=== PATIENT | female | born 1970 | race African-American/Black ===

== ENCOUNTER → 2017-01-22 | Outpatient (CLI) | payer OTHER ==
[2017-01-22 10:33] LABS: CREATININE 0.9 mg/dL (0.5-1.1)
[2017-01-22 10:34] LABS: ESTIMATED GFR (MDRD EQUATION) > 60
== END | disposition disaster alternative care site (69) ==
LOC: GLAB 09:30 → EDBD 09:30 → GLAB 09:42 → GRAD 11:00
PROVIDERS: Psychiatry & Neurology Neurology
DX: G51.0 Bell's palsy (principal); E04.9 Nontoxic goiter, unspecified; M50.322 Other cervical disc degeneration at C5-C6 level